=== PATIENT | female | born 1940 | race Hispanic/Latino ===

== ENCOUNTER 2019-07-09 03:26 | Inpatient (IN) | payer MEDICARE ==
[~2019-07-09] VITALS: Ht 157.5 cm; Wt 76.9 kg
[2019-07-09] MEDS ORDERED: AMIODARONE HCL 50 MG/ML 3 ML VIAL IV ONE ×2 (03:38)
[2019-07-09] MEDS ORDERED: LIDOCAINE PF 2% 5ML ABBOJECT IVP ONE (03:38)
[2019-07-09] MEDS ORDERED: CALCIUM CHLORIDE 100 MG/ML 10 ML SYG IVP ONE ×2 (03:38)
[2019-07-09] MEDS ORDERED: MAGNESIUM SULFATE 1 GM/2 ML VIAL IM ONE (03:38)
[2019-07-09] MEDS ORDERED: ATROPINE SULFATE 0.1 MG/ML 10 ML SYG IVP ONE (03:38)
[2019-07-09] MEDS ORDERED: LIDOCAINE 2G/250ML 250 ML IV ONE (03:38)
[2019-07-09] MEDS ORDERED: SODIUM BICARB 8.4% 50ML SYRINGE IVP ONE ×2 (03:38)
[2019-07-09] MEDS ORDERED: EPINEPHRINE 0.1 MG/ML 10 ML SYG IVP ONE (03:38)
--- NOTE | 2019-07-09 04:15 | NUR ---
DR PANDEY NOTIFIED OF PATIENT'S ADMISSION. RECEIVED ORDER TO KEEP PATIENT NPO AND NO FURTHER ORDERS AT THIS TIME.
[2019-07-09 04:36] VITALS: BP 122/66
[2019-07-09] MEDS ORDERED: METOPROLOL TARTRATE 25 MG TAB PO SCH (05:30)
[2019-07-09] MEDS ORDERED: CEFAZOLIN SODIUM 1 GM VIAL IVP PRN (05:30)
[2019-07-09 05:46] LABS: HEMATOCRIT 37.4 % (36-48); MEAN CORPUSCULAR HEMOGLOBIN 30.7 pg (27.0-33.0); MEAN CORPUSCULAR HGB CONC 34.1 g/dL (32.0-36.0); NUCLEATED RED BLOOD CELLS 0.1 % (0.0-0.19); PLATELET COUNT (AUTO) 260 K/uL (130-400); RED BLOOD CELL COUNT(AUTO) 4.16 MIL/uL (4.00-5.50); RED CELL DISTRIBUTION WIDTH 12.4 % (11.0-15.5); WHITE BLOOD COUNT (AUTO) 15.7 K/uL (4.8-10.8)
[2019-07-09 05:57] LABS: INR 1.02 (0.85-1.15); PARTIAL THROMBOPLASTIN TIME 30.7 SEC (26.3-35.5); PROTHROMBIN TIME 10.7 SEC (9.6-11.6)
[2019-07-09] MEDS: METOPROLOL TARTRATE 25 MG TAB PO SCH (06:02)
[2019-07-09 06:03] LABS: CREATININE 0.6 mg/dL (0.5-1.5); POTASSIUM 3.7 mmol/L (3.5-5.1)
[2019-07-09 06:05] LABS: HEMOGLOBIN A1C 10.7 % (4.0-6.0)
[2019-07-09 08:15] VITALS: BP 149/72
[2019-07-09] MEDS ORDERED: PAPAVERINE HCL 30 MG/ML 2ML VIAL ONE (09:20)
[2019-07-09] MEDS ORDERED: BACITRACIN 50,000 UNIT VIAL ONE (09:20)
[2019-07-09] MEDS ORDERED: MIRA25TA PO (14:35)
[2019-07-09] MEDS ORDERED: MOME17SP10 NS (14:35)
[2019-07-09] MEDS ORDERED: OMEP-50 PO (14:35)
[2019-07-09] MEDS ORDERED: ISOS30TA6 PO (14:35)
[2019-07-09] MEDS ORDERED: CHOL500051 PO (14:35)
[2019-07-09] MEDS ORDERED: CLOP75TA14 PO (14:35)
[2019-07-09] MEDS ORDERED: SIME180C46 PO (14:35)
[2019-07-09] MEDS ORDERED: TELM20TA8 PO (14:35)
[2019-07-09] MEDS ORDERED: GLIP5TAB11 PO (14:35)
[2019-07-09] MEDS ORDERED: LUBI24CA2 PO (14:35)
[2019-07-09] MEDS ORDERED: ASPI-1197 PO (14:35)
[2019-07-09] MEDS ORDERED: MONT10TA24 PO (14:35)
[2019-07-09] MEDS ORDERED: INSU100I26 SQ (14:35)
[2019-07-09] MEDS ORDERED: IBUP-2070 PO (14:35)
[2019-07-09] MEDS ORDERED: SAXA5TAB PO (14:35)
[2019-07-09 15:22] VITALS: BP 136/60
--- NOTE | 2019-07-09 16:28 | NUR ---
DC PLAN PATIENT IS A [employer] CV CONSULT. PATIENT HAS A LOT OF FAMILY AT BEDSIDE. CM WILL CONTINUE TO FOLLOW. POSSIBLE REDO CABG. Addendum: 07/09/19 at 1629 by MARY MACHUCA RN CM Amended: Links added.
[2019-07-09 19:42] VITALS: BP 139/55
--- NOTE | 2019-07-09 20:00 | NUR ---
PM NOTE PT RESTING IN BED. NO S/S OF DISTRESS. ALERT AND ORIENTED X4. FAMILY AT BEDSIDE. DENIES ANY PAIN AT THIS TIME. ON TELEMETRY PATIENT IS SINUS RHYTHM AT 76. CALL LIGHT WITHIN REACH. STATED TO CALL FOR ASSISTANCE. VERBALIZED UNDERSTANDING.
[2019-07-09 23:35] VITALS: BP 111/87
[2019-07-10] VITALS (7 sets, daily range): BP systolic 117–159; BP diastolic 49–60
[2019-07-10] MEDS: METOPROLOL TARTRATE 25 MG TAB PO SCH (06:40)
[2019-07-10] MEDS ORDERED: PANTOPRAZOLE SODIUM 40 MG TABLET.DR PO SCH (11:31)
[2019-07-10] MEDS: LOSARTAN 50 MG TABLET PO SCH (12:25)
[2019-07-10] MEDS: GLIPIZIDE 5 MG TABLET PO SCH ×2 (12:26→17:23)
[2019-07-10] MEDS: INSULIN HUMULIN R 100 UNIT/ML 3ML SQ SCH ×3 (12:30→21:00)
--- NOTE | 2019-07-10 14:23 | NUR ---
cm note met with patient and states resides at home alone. has multiple family members that live nearby and can assist her if needed. has provider 3hrhrs week. independent uses cane and walker for ambulation.attends adult day care.friday thru friday. they transport to states dc plan is back to home no dc needs Addendum: 07/10/19 at 1427 by MELECIO DEL ANGEL CM Amended: Links added.
[2019-07-10] MEDS: MONTELUKAST SODIUM 10 MG TAB PO SCH (21:24)
[2019-07-11 04:21] VITALS: BP 134/55
[2019-07-11] MEDS: METOPROLOL TARTRATE 25 MG TAB PO SCH (06:30)
[2019-07-11] MEDS: INSULIN HUMULIN R 100 UNIT/ML 3ML SQ SCH ×5 (06:31→21:49)
[2019-07-11] MEDS: PANTOPRAZOLE SODIUM 40 MG TABLET.DR PO SCH (06:44)
[2019-07-11 07:30] VITALS: BP 137/76
--- NOTE | 2019-07-11 07:45 | NUR ---
AM ASSESSMENT PT LAYING IN BED, HOB ELEVATED 30 DEGREES, RESTING. DAUGHTER @ BEDSIDE. SPA SPEAKING ONLY. A/O X 3. NO SOB. NO DISTRESS NOTED. DENIES CHEST PAIN OR DISCOMFORT. DENIES PALPITATIONS. TELE: SR. DENIES N/V AND/OR DIARRHEA. PLAN OF CARE REVIEWED, DR ROSENTHAL & ASSOCIATES TO DISCUSS PT'S CURRENT STATUS & OPTIONS FOR POSSIBLE PLAN OF CARE SINCE PT HIGH RISK FOR SX PER SURGEON. PT ASKING WHAT DO I RECOMMEND SHE SHOULD DO. RESPONDED TO PT, IN DAUGHTER'S PRESENCE, I CAN'T TELL HER WHAT TO DO REGARDING HER CARE. REINFORCED THE PLAN OF CARDIOLOGISTS DISCUSSING POSSIBILITIES & RECOMMENDATIONS OF PLAN OF CARE W/HER TOMORROW. UP W/ASSISTANCE. INSTRUCTED TO CALL FOR ASSISTANCE. CALL THAIS W/IN REACH.
[2019-07-11] MEDS: ASPIRIN 81MG TAB.CHEW PO SCH (08:09)
[2019-07-11] MEDS: LOSARTAN 50 MG TABLET PO SCH (08:09)
[2019-07-11] MEDS: GLIPIZIDE 5 MG TABLET PO SCH ×2 (08:09→16:24)
[2019-07-11] MEDS: ISOSORBIDE MONO 30MG TAB SR PO SCH (08:09)
[2019-07-11 11:30] VITALS: BP 120/51
[2019-07-11 15:31] VITALS: BP 133/55
--- NOTE | 2019-07-11 18:40 | NUR ---
STATUS Spoke to multiple family members at bedside, one of whom has previously, by report, been named as pt's spokesperson. Ongoing family disagreement regarding visitation is disrupting pt care - currently 5 visitors at bedside. According to erik, her mom, the patient, has stated that she "is tired" secondary to flow of visitors throughout the day. Additionally, reported to this RN that pt has requested "no more visitors". This has been explained, at length, to current visitors - pt's grandchildren. All visitors, except named ladysaad, have been asked to leave pt's room. At one point, this RN did hear pt tell her granddaughter to "go downstairs".
--- NOTE | 2019-07-11 18:55 | NUR ---
STATUS ATTEMPTED TO ASK PT, IN PRESENCE OF DAUGHTER & SECURITY, VISITOR & DECISION MAKER STATUS SINCE MULTIPLE VISITORS IN ROOM & PREVIOUS HX OF FAMILY/VISITOR ISSUES. ATTEMPTED TO EXPLAIN TO PT, FAMILY DYNAMICS WERE NOT IN QUESTION, BUT TRYING TO ESTABLISH VISITOR & DECISION MAKER LIMITATIONS SHE AGREES WITH TO PROVIDE SAFE CARE. PT NEVER PROVIDED DIRECT ANSWER TO QUESTION. DAUGHTER PRESENT TRIED TO EXPLAIN REASON FOR ASKING HER THIS. PT STARTED ACCUSING THIS RNJesse, OF CAUSING THESE PROBLEMS. DAUGHTER ATTEMPTED TO EXPLAIN TO PT ATTEMPT TO PREVENT FURTHER PROBLEMS THAT CAN AFFECT HER CURRENT HEALTH STATUS. PT CONTINUED TO ACCUSE Jesse DACOSTA, OF BEING @ FAULT. RN PROCEEDED TO WALK OUT OF THE ROOM. INFORMED ALLISON RIOS. DAUGHTER & TEXTILE DESIGNS SALES REPRESENTATIVE WERE PRESENT DURING INCIDENT.
[2019-07-11 19:23] VITALS: BP 164/103
[2019-07-11] MEDS: MONTELUKAST SODIUM 10 MG TAB PO SCH (20:28)
[2019-07-11 23:27] VITALS: BP 127/56
[2019-07-12 04:24] LABS: MEAN CORPUSCULAR HEMOGLOBIN 30.5 pg (27.0-33.0); MEAN CORPUSCULAR HGB CONC 34.3 g/dL (32.0-36.0); MEAN CORPUSCULAR VOLUME 89.1 fL (79-99); PLATELET COUNT (AUTO) 258 K/uL (130-400); RED BLOOD CELL COUNT(AUTO) 4.15 MIL/uL (4.00-5.50); RED CELL DISTRIBUTION WIDTH 12.3 % (11.0-15.5); WHITE BLOOD COUNT (AUTO) 13.8 K/uL (4.8-10.8)
[2019-07-12 04:26] VITALS: BP 127/71
[2019-07-12 04:39] LABS: CREATININE 0.7 mg/dL (0.5-1.5); POTASSIUM 3.4 mmol/L (3.5-5.1)
[2019-07-12] MEDS: INSULIN HUMULIN R 100 UNIT/ML 3ML SQ SCH ×4 (06:13→21:25)
[2019-07-12] MEDS: PANTOPRAZOLE SODIUM 40 MG TABLET.DR PO SCH (06:28)
[2019-07-12] MEDS: METOPROLOL TARTRATE 25 MG TAB PO SCH (06:30)
[2019-07-12] MEDS ORDERED: SODIUM CHLORIDE 0.9% 500ML 500 ML IV SCH (06:37)
[2019-07-12] MEDS ORDERED: DiphenhydrAMINE HCL 50 MG/ML VIAL IVP PRN (06:45)
[2019-07-12 07:09] LABS: HEMATOCRIT 38.5 % (36-48); MEAN CORPUSCULAR HEMOGLOBIN 30.5 pg (27.0-33.0); MEAN CORPUSCULAR HGB CONC 34.2 g/dL (32.0-36.0); MEAN CORPUSCULAR VOLUME 89.2 fL (79-99); PLATELET COUNT (AUTO) 255 K/uL (130-400); RED BLOOD CELL COUNT(AUTO) 4.31 MIL/uL (4.00-5.50); RED CELL DISTRIBUTION WIDTH 12.2 % (11.0-15.5); WHITE BLOOD COUNT (AUTO) 14.7 K/uL (4.8-10.8)
[2019-07-12 07:18] LABS: INR 0.96 (0.85-1.15); PARTIAL THROMBOPLASTIN TIME 26.8 SEC (26.3-35.5); PROTHROMBIN TIME 10.1 SEC (9.6-11.6)
[2019-07-12] MEDS: PREDNISONE 10 MG TABLET PO SCH (07:43)
[2019-07-12] MEDS: ASPIRIN 81MG TAB.CHEW PO SCH (07:43)
[2019-07-12] MEDS: GLIPIZIDE 5 MG TABLET PO SCH ×2 (07:44→16:37)
[2019-07-12] MEDS: ISOSORBIDE MONO 30MG TAB SR PO SCH (07:44)
[2019-07-12] MEDS: LOSARTAN 50 MG TABLET PO SCH (07:44)
[2019-07-12 08:08] VITALS: BP 144/68
[2019-07-12 12:34] VITALS: BP 137/59
--- NOTE | 2019-07-12 13:55 | NUR ---
MPOA/ DIRECTIVES SW met with pt and 2 daughters. Pt states she has 10 daughters and 2 sons. SW educated pt and daughters on MPOA and directives. Pt voiced understanding of forms and need to complete prior to surgery so that she has a spokes person in event pt is unable to make decisions. Pt designated daughter Adelaida Acuna as MPOA, and daughter Guillermina Parrish and Kat Ontiveros as alternates. Forms copied and placed in chart. Pt given original and 2 copies for daughters. Cm and CMD aware of above
[2019-07-12 15:37] VITALS: BP 102/54
[2019-07-12 17:14] LABS: APPEARANCE,URINE Clear (CLEAR); BILIRUBIN,URINE Negative (NEGATIVE); COLOR,URINE Yellow (YELLOW); GLUCOSE, URINE (UA) >=1000 mg/dL (NEGATIVE); KETONES,URINE 15 mg/dL (NEGATIVE); LEUKOCYTE ESTERASE ,URINE Negative (NEGATIVE); NITRATE,URINE Negative (NEGATIVE); OCCULT BLOOD,URINE Negative (NEGATIVE); PROTEIN,URINE Negative (NEGATIVE); UROBILINOGEN,URINE 0.2 mg/dL (0.2-1.0)
[2019-07-12 20:34] VITALS: BP 133/63
[2019-07-12] MEDS: MONTELUKAST SODIUM 10 MG TAB PO SCH (21:23)
[2019-07-12 23:44] VITALS: BP 125/58
[2019-07-13 03:29] VITALS: BP 118/69
[2019-07-13] MEDS: METOPROLOL TARTRATE 25 MG TAB PO SCH (06:19)
[2019-07-13] MEDS: PREDNISONE 10 MG TABLET PO SCH (06:45)
[2019-07-13] MEDS ORDERED: METHYLPREDNISOLONE SOD SUCC 125MG/2ML VIAL IVP PRN (06:45)
[2019-07-13] MEDS: INSULIN HUMULIN R 100 UNIT/ML 3ML SQ SCH ×4 (07:01→21:00)
--- NOTE | 2019-07-13 07:02 | NUR ---
glucometer 189, pt npo no insulin given
[2019-07-13] MEDS: PANTOPRAZOLE SODIUM 40 MG TABLET.DR PO SCH (07:30)
[2019-07-13] MEDS: GLIPIZIDE 5 MG TABLET PO SCH ×2 (08:00→17:00)
[2019-07-13 08:22] VITALS: BP 151/57
[2019-07-13] MEDS: ISOSORBIDE MONO 30MG TAB SR PO SCH (09:00)
[2019-07-13] MEDS ORDERED: HEPARIN SODIUM 1000UNIT/ML 10ML VIAL ONE ×4 (11:15→21:59)
[2019-07-13] MEDS ORDERED: SODIUM BICARB 50MEQ 50ML VIAL ONE ×7 (11:15→22:08)
[2019-07-13] MEDS ORDERED: IOHEXOL 350 MG/ML 100ML INFUS..BTL IV ONE ×2 (11:16→21:52)
[2019-07-13] MEDS ORDERED: LIDOCAINE HCL 2% 20ML ONE ×3 (11:16→21:52)
[2019-07-13] MEDS ORDERED: IOHEXOL-350 75 ML VIAL IV ONE ×2 (11:16→13:11)
[2019-07-13] MEDS ORDERED: IOHEXOL-350 50ML VIAL IV ONE (11:16)
[2019-07-13] MEDS ORDERED: NITROGLYCERIN 5 MG/ML 10 ML VIAL IV ONE ×2 (11:16→21:52)
[2019-07-13 11:56] VITALS: BP 136/65
--- NOTE | 2019-07-13 12:45 | NUR ---
PRE MEDS GIVEN AT THIS TIME.
[2019-07-13] MEDS ORDERED: ATROPINE SULFATE 0.1 MG/ML 10 ML SYG IVP ONE ×2 (13:10→13:50)
[2019-07-13] MEDS ORDERED: DOPAMINE HCL 400 MG/D5%-WATER 250 ML IV ONE (13:11)
--- NOTE | 2019-07-13 13:18 | NUR ---
PATIENT TAKEN BY ELECTRICAL MAINTENANCE ENGINEER STAFF.
[2019-07-13] MEDS ORDERED: FENTANYL CITRATE PF 50 MCG/1 ML 2ML VIAL ONE ×2 (13:48→17:35)
[2019-07-13] MEDS ORDERED: MIDAZOLAM HCL 1 MG/ML 2ML VIAL ONE (13:48)
[2019-07-13] MEDS ORDERED: EPHEDRINE SULFATE 50 MG/ML AMPULE ONE (13:50)
[2019-07-13] MEDS ORDERED: PROPOFOL 10 MG/ML 20ML VIAL IV ONE (14:13)
[2019-07-13] MEDS ORDERED: LIDOCAINE HCL MPF 1% 5ML VIAL ONE (14:14)
[2019-07-13] MEDS ORDERED: CEFAZOLIN SODIUM 1 GM VIAL ONE ×2 (14:14→20:20)
[2019-07-13] MEDS ORDERED: ROCURONIUM BROMIDE 10MG/1ML 5ML VL ONE ×2 (14:14→21:17)
[2019-07-13] MEDS ORDERED: SODIUM CHLORIDE 0.9% 1000ML 1,000 ML IV SCH (17:17)
[2019-07-13] MEDS: LOSARTAN 50 MG TABLET PO SCH (17:24)
[2019-07-13] MEDS: ASPIRIN 81MG TAB.CHEW PO SCH (17:24)
[2019-07-13] MEDS ORDERED: ASPIRIN 81MG TAB.CHEW PO SCH (17:30)
[2019-07-13] MEDS ORDERED: TICAGRELOR 90 MG TABLET PO SCH (19:00)
[2019-07-13] MEDS ORDERED: ALBUMIN (HUMAN) 5% 250 ML IV ONE (19:03)
[2019-07-13] MEDS ORDERED: PROTAMINE SULFATE 10 MG/ML 25ML VIAL IV ONE (19:09)
[2019-07-13] MEDS ORDERED: NOREPINEPHRINE BITARTRATE 1 MG/1 ML ML IV ONE (19:12)
[2019-07-13] MEDS ORDERED: BACITRACIN 50,000 UNIT VIAL ONE (20:44)
[2019-07-13 20:51] LABS: ABG BASE EXCESS -7.4 mmol/L (-2.0-3.0); ABG HCO3 17.5 mmol/L (21.0-28.0); ABG OXYGEN SATURATION 98.7 % (95.0-99.0); ABG PCO2 33 mmHg (32-45)
[2019-07-13] MEDS ORDERED: ATORVASTATIN CALCIUM 20 MG TABLET PO SCH (21:00)
[2019-07-13] MEDS: MONTELUKAST SODIUM 10 MG TAB PO SCH (21:00)
[2019-07-13] MEDS ORDERED: BACITRACIN 28.4 GM OINT TP ONE (21:02)
[2019-07-13] MEDS ORDERED: ASPIRIN 81MG TAB.CHEW ONE (21:08)
[2019-07-13] MEDS ORDERED: TICAGRELOR 90 MG TABLET ONE ×2 (21:09)
[2019-07-13] MEDS ORDERED: LIDOCAINE PF 2% 5ML ABBOJECT ONE (21:21)
[2019-07-13] MEDS ORDERED: EPINEPHRINE 1 MG/ML 30ML VIAL IJ ONE (21:28)
--- NOTE | 2019-07-13 21:39 | NUR ---
EKG PERFORMED WHILE IN SURGICAL TECH Addendum: 07/15/19 at 1250 by ETIENNE BRANTLEYLT Amended: Links added.
[2019-07-13 21:45] LABS: ABG BASE EXCESS -3.8 mmol/L (-2.0-3.0); ABG OXYGEN SATURATION 98.8 % (95.0-99.0); ABG PCO2 31 mmHg (32-45)
[2019-07-13 21:59] LABS: HEMATOCRIT 22.8 % (36-48)
[2019-07-13 22:10] LABS: INR 1.3 (0.85-1.15); PARTIAL THROMBOPLASTIN TIME 36.1 SEC (26.3-35.5); PROTHROMBIN TIME 13.5 SEC (9.6-11.6)
[2019-07-13 22:15] LABS: CREATININE 0.9 mg/dL (0.5-1.5); POTASSIUM 4.3 mmol/L (3.5-5.1)
[2019-07-13] MEDS ORDERED: HEPARIN 25000 UNITS/250 ML D5W 250 ML IV ONE (22:29)
[2019-07-13 22:53] LABS: ABG BASE EXCESS -16.6 mmol/L (-2.0-3.0); ABG HCO3 11.7 mmol/L (21.0-28.0); ABG OXYGEN SATURATION 86.6 % (95.0-99.0); ABG PCO2 38 mmHg (32-45)
[2019-07-14] VITALS (15 sets, daily range): BP systolic 24–43; BP diastolic 0–23
[2019-07-14] MEDS ORDERED: NOREPINEPHRINE BITARTRATE 1 MG/1 ML ML IV ONE (00:49)
[2019-07-14] MEDS ORDERED: EPINEPHRINE 1 MG/ML 30ML VIAL IJ ONE (00:49)
[2019-07-14] MEDS ORDERED: SODIUM CHLORIDE 0.9% 500 ML IV ONE (00:51)
--- NOTE | 2019-07-14 04:00 | NUR ---
ALEXA LIU MADE AWARE OF PT EXPIRING. PT NOT A CANDIDATE FOR DONATION.
--- NOTE | 2019-07-14 05:00 | NUR ---
NOTIFICATION OF 031: HOUSE SUPER NOTIFIED PT HAD GONE INTO [facility] 032 DR MARQUEZ NOTIFIED PT WAS IN ASYSTOLE. PER MD, OK TO STOP BALLOON PUMP AND DC VENT. FAMILY MADE AWARE. 033. PT PRONOUNCED BY DR. YOUNG 0405. DR. SCHULTZ MADE AWARE OF PT PASSING. 0445. BENCHMARK NOTIFIED OF PT EXPIRING
--- NOTE | 2019-07-14 05:30 | NUR ---
POST MORTEM CARE PROVIDED AND ALL LINES REMOVED. AND [facility] NOTIFIED OF CALL CENTER OPERATIONS MANAGER.
[2019-07-14] MEDS ORDERED: TICAGRELOR 90 MG TABLET PO SCH (09:00)
== END 2019-07-14 03:39 | disposition expired | DRG 215 ==
LOC: 2DH 03:26 → 2CH 07-13 17:17 → 2BH 07-13 23:54
PROVIDERS: ADMIT Thoracic Surgery (Cardiothoracic Vascular Surgery); ATTEND Thoracic Surgery (Cardiothoracic Vascular Surgery)
PROC: 5A0221D Assistance with Cardiac Output using Impeller Pump, Continuous (ICD-10-PCS; 2019-07-13)
PROC: 04R Lower Arteries, Replacement (ICD-10-PCS; 2019-07-13)
PROC: 027136Z Dilation of Coronary Artery, Two Arteries with Three Drug-eluting Intraluminal Devices, Percutaneous Approach (ICD-10-PCS; 2019-07-13)
PROC: 5A1223Z Performance of Cardiac Pacing, Continuous (ICD-10-PCS; 2019-07-13)
PROC: 02703ZZ Dilation of Coronary Artery, One Artery, Percutaneous Approach (ICD-10-PCS; 2019-07-13)
PROC: B2111ZZ Fluoroscopy of Multiple Coronary Arteries using Low Osmolar Contrast (ICD-10-PCS; 2019-07-13)
PROC: 5A12012 Performance of Cardiac Output, Single, Manual (ICD-10-PCS; 2019-07-13)
PROC: 30233N1 Transfusion of Nonautologous Red Blood Cells into Peripheral Vein, Percutaneous Approach (ICD-10-PCS; 2019-07-13)
PROC: 027035Z Dilation of Coronary Artery, One Artery with Two Drug-eluting Intraluminal Devices, Percutaneous Approach (ICD-10-PCS; 2019-07-13)
PROC: 02HA3RJ Insertion of Short-term External Heart Assist System into Heart, Intraoperative, Percutaneous Approach (ICD-10-PCS; principal; 2019-07-13 17:07)
DX: T82.867A Thrombosis due to cardiac prosthetic devices, implants and grafts, initial encounter (principal); I21.19 ST elevation (STEMI) myocardial infarction involving other coronary artery of inferior wall; I25.110 Atherosclerotic heart disease of native coronary artery with unstable angina pectoris; I44.2 Atrioventricular block, complete; E66.01 Morbid (severe) obesity due to excess calories; I46.9 Cardiac arrest, cause unspecified; I10 Essential (primary) hypertension; E11.51 Type 2 diabetes mellitus with diabetic peripheral angiopathy without gangrene; E78.5 Hyperlipidemia, unspecified; D72.829 Elevated white blood cell count, unspecified; Y83.2 Surgical operation with anastomosis, bypass or graft as the cause of abnormal reaction of the patient, or of later complication, without mention of misadventure at the time of the procedure; Y92.89 Other specified places as the place of occurrence of the external cause; Z68.31 Body mass index [BMI] 31.0-31.9, adult; Z88.8 Allergy status to other drugs, medicaments and biological substances; Z95.0 Presence of cardiac pacemaker; Z91.041 Radiographic dye allergy status; Z95.1 Presence of aortocoronary bypass graft; I25.2 Old myocardial infarction
CPT/HCPCS: 33210; 33967; 33990; 35286; 36415; 71045; 71250; 76775; 80048; 80061; 81003; 82435; 82803; 82947; 82948; 83036; 83605; 84132; 84295; 84484; 85014; 85018; 85027; 85347; 85610; 85730; 86850; 86900; 86901; 86922; 92950; 93005; 93880; 94002; 94060; A4344; C1725; C1751; C1760; C1763; C1769; C1887; C1894; C9600; G0378; J0171; J0282; J0461; J0690; J1200; J1265; J1644; J1815; J2001; J2250; J2440; J2704; J2720; J2930; J3010; J3475; J3490; J7030; J7040; J7512; P9016; P9045; Q9967